=== PATIENT | male | born 1985 | race African-American/Black ===

== ENCOUNTER 2020-11-16 15:57 | Emergency (ER) | payer OTHER ==
[~2020-11-16] VITALS: Ht 185.4 cm; Wt 102.3 kg
[2020-11-16] MEDS ORDERED: LIDOCAINE/PF 1% 2 ML VIAL IM ONE (16:30)
[2020-11-16] MEDS ORDERED: CefTRIAXone SODIUM 1 GM/VIAL IM ONE (16:30)
[2020-11-16] MEDS ORDERED: ACETAMINOPHEN 500 MG TABLET PO ONE ×2 (16:30)
[2020-11-16] MEDS ORDERED: DOXYCYCLINE HYCLATE 100 MG TABLET PO ONE (16:30)
[2020-11-16] MEDS ORDERED: CLOTRIMAZOLE 1% 15 GM CREAM TP ONE (16:30)
[2020-11-16 16:37] LABS: APPEARANCE,URINE TURBID (CLEAR); GLUCOSE, URINE (UA) NEGATIVE (NEGATIVE); KETONES,URINE TRACE mg/dL (NEGATIVE); LEUKOCYTE ESTERASE ,URINE LARGE (NEGATIVE); NITRATE,URINE NEGATIVE (NEGATIVE); OCCULT BLOOD,URINE LARGE (NEGATIVE); PROTEIN,URINE SEE CONFIRM (NEGATIVE)
[2020-11-16 16:39] LABS: BILIRUBIN,URINE PRELIM. POSITIVE (NEGATIVE)
[2020-11-16 16:44] LABS: SULFOSALICYLIC ACID,URINE 2+ (Negative)
[2020-11-16 16:45] LABS: WBC,URINE >100 /HPF (0-5)
[2020-11-16 16:46] LABS: BACTERIA,URINE Few /HPF (None Seen); SQUAMOUS EPITHELIAL CELL,UR Rare /LPF (None Seen)
[2020-11-16 17:25] VITALS: BP 129/67
== END 2020-11-16 17:59 | disposition home or self-care (01) ==
LOC: EMS 16:06
DX: N48.1 Balanitis (principal); N39.0 Urinary tract infection, site not specified; A64 Unspecified sexually transmitted disease; F17.210 Nicotine dependence, cigarettes, uncomplicated
CPT/HCPCS: 81001; 87086; 87491; 87591; 96372; 99284; J0696; J3490; 81002